=== PATIENT | female | born 1950 | race Caucasian/White ===

== ENCOUNTER 2021-05-05 11:10 | Emergency (ER) | payer OTHER ==
[~2021-05-05 11:10] MED LIST: ZOFRAN8 MG PO
[2021-05-05 14:07] LABS: BASOPHIL 0.7 % (0-2); EOSINOPHIL 0.5 % (0-7); HCT 45.3 % (37.0-47.0); HGB 14.9 g/dl (12.5-16.0); MCH 31.3 pg (25.0-31.0); MCHC 32.9 g/dL (32.0-36.0); MCV 95.2 fL (78.0-100.0); MONOCYTE 7.1 % (0-12); MPV 10.2 fL (6.0-9.5); NEUTROPHIL 70.4 % (41-80); NRBC 0; PLT 443 K/uL (150-400); RBC 4.76 M/uL (4.20-5.40); WBC 10.7 K/uL (4.0-10.5)
[2021-05-05 15:00] LABS: ALBUMIN 4.5 g/dL (3.4-5.0); BILIRUBIN - TOTAL 0.3 mg/dL (0.2-1.0); BUN/CREAT RATIO (CALC) 28.4 RATIO; CREATININE 0.67 mg/dL (0.51-0.95); GLOBULIN (CALCULATION) 4.8 g/dL; POTASSIUM 3.5 mmol/L (3.5-5.1); TOTAL PROTEIN 9.3 g/dL (6.4-8.2)
[2021-05-05] MEDS ORDERED: IMITREX50 MG PO (18:02)
== END 2021-05-05 18:40 | disposition home or self-care (01) ==
LOC: FER 11:10
PROVIDERS: Emergency Medicine
DX: R51.9 Headache, unspecified (principal); R03.0 Elevated blood-pressure reading, without diagnosis of hypertension; E10.9 Type 1 diabetes mellitus without complications; Z87.891 Personal history of nicotine dependence
CPT/HCPCS: 36415; 70450; 80053; 85025; J1170; J1885; J2405; J2765; J2930